=== PATIENT | female | born 1995 | race Asian ===

== ENCOUNTER 2017-04-24 19:03 | Emergency (ER) | payer OTHER ==
[2017-04-24 19:12] VITALS: BP 105/63; PULSE 92; TEMP 98.5; BMI 22.6
[2017-04-24] MEDS ORDERED: LIDOCAINE HCL 1%, 10 MG/ML (20ML VIAL) ONE (19:13)
--- NOTE | 2017-04-24 20:17 | PDOC ---
History of Present Illness - General History Source: Patient Exam Limitations: No Limitations - History of Present Illness Initial Comments: 04/24/17 20:34 The patient is a 21 year old female with no significant past medical history who presents to the ED secondary to a syncopal episode that occurred this morning. The patient states she lives in [place] for school where she lost consciousness in her apartment, and subsequently hit her head. When she regained consciousness, she noticed a cut on her left eyebrow. When the patient returned home later today, she was brought to her money position officer who instructed her to go to the ER to get stitches. In the ED she complains of headache, which she explains is normal as she gets frequent headaches. The patient states that she has had other syncopal episodes in the past which she describes to be vasovagal and reports she will be going to see a fainting specialist soon. At her pediatricians office earlier, she received blood work results of her recent physical and was told she is anemic. She will be started on Iron supplements. The patients LMP was one month ago. She denies use of oral contraceptives or any family history of blood related illness. The patient reports her tetanus is up to date. <Jennifer Maloney - Last Filed: 04/24/17 20:34> <Maik Theodore - Last Filed: 04/25/17 00:33> - General Chief Complaint: Syncope/Near Syncope Stated Complaint: SYNCOPE/HEAD LAC Past History <Jennifer Maloney - Last Filed: 04/24/17 20:34> - Past Medical History COPD: No - Immunization History Immunization Up to Date: Yes (05/09) - Suicide/Smoking/Psychosocial Hx Smoking History: Never smoked <Maik Theodore - Last Filed: 04/25/17 00:33> - Past Medical History Allergies/Adverse Reactions: Allergies Allergy/AdvReac Type Severity Reaction Status Date / Time No Known Allergies Allergy Unverified 04/24/17 19:10 Home Medications: Ambulatory Orders NK [No Known Home Medication] 04/24/17 Review of Systems - Review of Systems Able to Perform ROS?: Yes Comments:: 04/24/17 20:34 GENERAL/CONSTITUTIONAL: No fever or chills. No weakness. HEAD, EYES, EARS, NOSE AND THROAT: No change in vision. No ear pain or discharge. No sore throat. CARDIOVASCULAR: No chest pain or shortness of breath. RESPIRATORY: No cough, wheezing, or hemoptysis. GASTROINTESTINAL: No nausea, vomiting, diarrhea or constipation. GENITOURINARY: No dysuria, frequency, or change in urination. MUSCULOSKELETAL: No joint or muscle swelling or pain. No neck or back pain. SKIN: Cut on left eyebrow. No rash NEUROLOGIC: Present: syncope No headache, vertigo,or change in strength/sensation. ENDOCRINE: No increased thirst. No abnormal weight change. HEMATOLOGIC/LYMPHATIC: No anemia, easy bleeding, or history of blood clots. ALLERGIC/IMMUNOLOGIC: No hives or skin allergy. All Other Systems: Reviewed and Negative <Jennifer Maloney - Last Filed: 04/24/17 20:34> *Physical Exam - Vital Signs Last Vital Signs Temp Pulse Resp BP Pulse Ox 98.5 F 92 H 16 105/63 100 04/24/17 19:11 04/24/17 19:11 04/24/17 19:11 04/24/17 19:11 04/24/17 19:11 - Physical Exam Comments: 04/24/17 20:35 GENERAL: Awake, alert, and fully oriented, in no acute distress HEAD: No signs of trauma EYES: PERRLA, EOMI, sclera anicteric, conjunctiva clear ENT: Auricles normal inspection, hearing grossly normal, nares patent, oropharynx clear without exudates. Moist mucosa NECK: Normal ROM, supple, no lymphadenopathy, JVD, or masses LUNGS: Breath sounds equal, clear to auscultation bilaterally. No wheezes, and no crackles HEART: Regular rate and rhythm, normal S1 and S2, no murmurs, rubs or gallops ABDOMEN: Soft, nontender, normoactive bowel sounds. No guarding, no rebound. No masses EXTREMITIES: Normal range of motion, no edema. No clubbing or cyanosis. No cords, erythema, or tenderness NEUROLOGICAL: Cranial nerves II through XII grossly intact. Normal speech, normal gait SKIN: 2 cm laceration on left eyebrow. Warm, Dry, normal turgor, no rashes <[email or web address] - Last Filed: 04/24/17 20:34> - Vital Signs Last Vital Signs Temp Pulse Resp BP Pulse Ox 98.5 F 92 H 16 105/63 100 04/24/17 19:11 04/24/17 19:11 04/24/17 19:11 04/24/17 19:11 04/24/17 19:11 <Maik Theodore - Last Filed: 04/25/17 00:33> Procedures - Laceration/Wound Repair Left Progress: 04/24/17 20:37 2cm laceration over left eyebrow anesthetized with 2cc 1% lidocaine, irrigated fully without evidence of foreign body. 4 6-0 nylon sutures placed and dressed with sterile dressing <Jennifer Maloney - Last Filed: 04/24/17 20:34> Heart Score/ECG Review - ECG Intrepretation Comment:: 04/24/17 20:38 ECG showed normal sinus at 91 bpm Normal axis, normal intervals, no ischemia Inverted T waves in V1-V3, normal pattern <Jennifer Maloney - Last Filed: 04/24/17 20:34> Medical Decision Making - Medical Decision Making 04/25/17 00:26 low risk syncope. will not pursue beyond EKG. has outpt fu in place. head--low risk for ich by [place] lac repaired. tetanus utd <Maik Theodore - Last Filed: 04/25/17 00:33> *DC/Admit/Observation/Transfer - Attestations Scribe Attestion: 04/24/17 20:39 Documentation prepared by Jennifer Maloney, acting as biomedical service engineer for Maik Theodore MD. <Jennifer Maloney - Last Filed: 04/24/17 20:34> <Maik Theodore - Last Filed: 04/25/17 00:33> Diagnosis at time of Disposition: Syncope Qualifiers: Syncope type: unspecified Qualified Code(s): R55 - Syncope and collapse - Discharge Dispostion Disposition: HOME Condition at time of disposition: Stable - Patient Instructions Printed Discharge Instructions: DI for Syncope in Adults (Fainting), DI for Laceration Repair Additional Instructions: Stitches out 3 days
--- NOTE | 2017-04-27 18:58 | EKG ---
Test Reason : Blood Pressure : / mmHG Vent. Rate : 091 BPM Atrial Rate : 091 BPM P-R Int : 152 ms QRS Dur : 086 ms QT Int : 364 ms P-R-T Axes : 067 059 039 degrees QTc Int : 447 ms NORMAL SINUS RHYTHM WITH SINUS ARRHYTHMIA RSR' OR QR PATTERN IN V1 SUGGESTS RIGHT VENTRICULAR CONDUCTION DELAY OTHERWISE NORMAL ECG NO PREVIOUS ECGS AVAILABLE Confirmed by CHAPIN PIRES MD ([id number] on 04/27/2017 6:57:51 PM Referred By: MD DONAHUE Confirmed By:CHAPIN PIRES MD
== END 2017-04-24 20:14 | disposition home or self-care (01) ==
LOC: FER 19:03
PROC: 08QPXZZ Repair Left Upper Eyelid, External Approach (ICD-10-PCS; principal; 2017-04-24)
DX: S01.112A Laceration without foreign body of left eyelid and periocular area, initial encounter (principal); R55 Syncope and collapse; X58.XXXA Exposure to other specified factors, initial encounter; Y93.9 Activity, unspecified; Y92.9 Unspecified place or not applicable
CPT/HCPCS: 93005; 93010; 99282-25